=== PATIENT | female | born 1985 | race African-American/Black ===

== ENCOUNTER → 2016-04-21 | Outpatient (CLI) | payer BC ==
[~2016-04-21] VITALS: Ht 149.9 cm; Wt 91.6 kg
[~2016-04-21] MED LIST: PENICILLIN G BENZATHINE LA 2,400,000 UNIT/4 ML DISP.SYRIN. IM ONE
[2016-04-21 13:45] VITALS: BP 115/74
== END | disposition home or self-care (01) ==
LOC: OPS 12:30
PROVIDERS: ATTEND Obstetrics & Gynecology
DX: A53.9 Syphilis, unspecified (principal)
CPT/HCPCS: 96372; J0561

== ENCOUNTER 2021-01-04 11:47 | Day surgery (SDC) | payer BC ==
[~2021-01-04] VITALS: Ht 149.9 cm; Wt 69.0 kg
[~2021-01-04 11:47] MED LIST changes: +HYDROmorphone 2 MG/ML VIAL IVP PRN; +IV RINGERS,LACTATED 1000ML 1,000 ML IV SCH; +METF500T16 PO; +MORPHINE SULFATE 2 MG/ML INJ. IVP PRN; -PENICILLIN G BENZATHINE LA 2,400,000 UNIT/4 ML DISP.SYRIN. IM ONE; +PROCHLORPERAZINE 10 MG/2 ML VIAL. IVP PRN; +SITA100T PO; +ceFAZolin SODIUM IV Push 1 GM VIAL. IVP PRN; +fentaNYL PF VIAL 100 MCG/2 ML VIAL IVP PRN
[2021-01-04] MEDS: INSULIN LISPRO 100 UNIT/ML 3ML VIAL for OP,RR ONLY. SQ PRN ×3 (12:25→15:40)
[2021-01-04] MEDS ORDERED: ACETAMINOPHEN 500 MG TABLET PO ONE (12:45)
[2021-01-04] MEDS ORDERED: LIDOCAINE 2% PF 5 ML VIAL. ONE (13:12)
[2021-01-04] MEDS ORDERED: fentaNYL PF VIAL 250 MCG/5 ML VIAL ONE (13:12)
[2021-01-04] MEDS ORDERED: ROCURONIUM 50 MG/5 ML VIAL. ONE (13:12)
[2021-01-04] MEDS ORDERED: MIDAZOLAM HCL/PF 2 MG/2 ML VIAL. ONE (13:12)
[2021-01-04] MEDS ORDERED: PROPOFOL 10 MG/ML (20ML) VIAL. IV ONE (13:12)
[2021-01-04] MEDS ORDERED: SURGICEL HEMOSTAT 4X8 EACH. ONE (13:51)
[2021-01-04] MEDS ORDERED: BUPIVACAINE-EPI 0.25%-1:200000 MPF 30 ML VIAL. ONE (13:51)
[2021-01-04] MEDS ORDERED: IOHEXOL 300 MG/ML 50 ML VIAL. ONE (13:51)
[2021-01-04] MEDS ORDERED: ONDANSETRON PF 4 MG/2 ML VIAL. ONE (13:57)
[2021-01-04] MEDS ORDERED: DEXAMETHASONE SOD PHOS 4 MG/ML VIAL ONE (13:57)
[2021-01-04] MEDS ORDERED: NEOSTIGMINE 10 MG/10 ML VIAL. ONE (14:44)
[2021-01-04] MEDS ORDERED: SUCCINYLCHOLINE 200 MG/10 ML VIAL. ONE (14:44)
[2021-01-04] MEDS ORDERED: GLYCOPYRROLATE 1 MG/5 ML VIAL. ONE (14:45)
[2021-01-04] MEDS ORDERED: KETOROLAC 30 MG/ML VIAL. ONE (14:47)
[2021-01-04] MEDS ORDERED: SEVOFLURANE 31 TO 60 MINUTES. IH ONE (14:47)
--- NOTE | 2021-01-04 14:55 | PDOC4 ---
Operative Note Operative Note Date: January 04, 2021 at 1452 Preoperative diagnosis: Biliary dyskinesia Postoperative diagnosis: Same Procedure: Laparoscopic cholecystectomy with fluorescein cholangiography Surgeon: Mukund Specimen: Gallbladder Dictation: Patient is a 35-year-old female has had right upper quadrant abdominal pain nausea vomiting HIDA scan shows ejection fraction of only 10%. Procedure of laparoscopic cholecystectomy was explained to the patient detail risk benefits were also discussed including bleeding infection injury to intra- abdominal contents possible necessitating further or open operations alternatives to this procedure also discussed with the patient who seemed to understand and gave a verbal and written consent to have the procedure performed. Patient was taken to the operating room placed in the supine position general anesthesia was initiated once patient was sleeping intubated her abdomen was prepped and draped usual sterile fashion using ChloraPrep. An area just below the umbilicus was injected with quarter percent Marcaine with epinephrine incision was made 11 blade scalpel and a varies needle was placed within the abdomen creating pneumoperitoneum once this was complete 11 mm port was placed in a 5 mm camera was placed within the abdomen which was inspected no other abnormalities were noted. 5 mm port was placed in the epigastrium and the 5 mm port was placed in the right midabdomen and a 5 mm port was placed in the right lateral abdomen. The dome of the gallbladder is grasped retracted cephalad the infundibulum of the gallbladder is grasped tract laterally exposing the triangle adherent tissues of the triangle were taken down exposing the cystic duct and cystic artery. Fluorescein cholangiography showed the cystic duct as well as the common bile duct with out evidence of obstruction. The cystic duct and cystic artery both doubly clipped and transected the gallbladder is taken off the liver with hook electrocautery placed in Endo Catch bag and removed from the umbilicus the right upper quadrant was irrigated and suctioned dry hemostasis deemed be appropriate the pneumoperitoneum was reduced all ports were removed the fascial defect at the umbilicus was closed with a [id number] 0 Vicryl suture and the skin was reapproximated all port sites for subcuticular Monocryl Mastisol Steri-Strips and island dressings were a pplied. Patient was awakened and extubated in the operating room taken to recovery in stable condition all sponge instrument needle counts listed as correct estimated blood loss 10 mL JOHN HOLCOMB MD Jan 04, 2021 14:55
[2021-01-04] MEDS ORDERED: OXYC-325 PO (14:57)
--- NOTE | 2021-01-04 14:59 | DISCH ---
DISCHARGE INSTRUCTIONS Condition on Discharge Condition on Discharge: Stable Activity After Discharge Activity Instructions for Disc: Avoid exertion Other activity instructions: No lifting more than 20 pounds for 2 weeks Diet after Discharge Diet after Discharge: Regular Wound Incision Care Other wound/incision instructi: Latasha shower in 24 hours Contacting the DRMadeline after DC Call your doctor for: If your condition worsens Follow-Up Follow up with: Dr. Holcomb in 2 weeks JOHN HOLCOMB MD Jan 04, 2021 14:59
[2021-01-04] MEDS ORDERED: INSULIN LISPRO 100 UNIT/ML 3ML VIAL for OP,RR ONLY. SQ ONE ×3 (15:45)
[2021-01-04] MEDS ORDERED: oxyCODONE/APAP 5/325 1 TAB TABLET PO ONE (16:30)
[2021-01-04 16:55] VITALS: BP 139/80
== END 2021-01-04 17:15 | disposition home or self-care (01) ==
LOC: SURG 11:47
PROVIDERS: ATTEND Surgery
DX: K82.8 Other specified diseases of gallbladder (principal); K21.9 Gastro-esophageal reflux disease without esophagitis; E11.9 Type 2 diabetes mellitus without complications; Z79.84 Long term (current) use of oral hypoglycemic drugs; Z79.899 Other long term (current) drug therapy; Z98.890 Other specified postprocedural states; Z72.89 Other problems related to lifestyle
CPT/HCPCS: 47563; 81025; 82962; A4364; A4930; A6219; J0330; J0690; J0780; J1815; J1885; J2405; J2704; J2710; J3010; J3490; 88304; A4657; J1100; J2250; Q9967